=== PATIENT | female | born 1970 | race American Indian/Alaskan Native ===

== ENCOUNTER 2022-07-04 02:56 | Emergency (ER) | payer OTHER ==
[2022-07-04 03:01] VITALS: BP 157/90
== END 2022-07-04 04:30 | disposition left against medical advice (07) ==
LOC: ED 02:56
DX: R53.83 Other fatigue (principal); G43.909 Migraine, unspecified, not intractable, without status migrainosus; Z53.21 Procedure and treatment not carried out due to patient leaving prior to being seen by health care provider